=== PATIENT | female | born 1990 | race Two or more races ===

== ENCOUNTER 2021-08-20 12:29 | Emergency (ER) | payer OTHER ==
[~2021-08-20] VITALS: Ht 157.5 cm; Wt 73.9 kg
[2021-08-20] MEDS ORDERED: VITAMIN B-COMP1 EAC1 PO (13:22)
[2021-08-20] MEDS ORDERED: FOLIC ACID1 MG PO (13:22)
== END 2021-08-20 18:53 | disposition home or self-care (01) ==
LOC: ER 12:29
DX: O21.0 Mild hyperemesis gravidarum (principal); Z88.6 Allergy status to analgesic agent; Z3A.14 14 weeks gestation of pregnancy

== ENCOUNTER 2021-08-22 10:28 | Inpatient (IN) | payer OTHER ==
[~2021-08-22] VITALS: Ht 157.5 cm; Wt 75.7 kg
[~2021-08-22 10:28] MED LIST: FOLIC ACID1 MG PO; VITAMIN B-COMP1 EAC1 PO
== END 2021-08-24 11:37 | disposition home or self-care (01) | DRG 833 ==
LOC: OB/GYN 10:28 → SURG-SUITE 10:28
PROVIDERS: ADMIT Obstetrics & Gynecology; ATTEND Obstetrics & Gynecology
PROC: 4A1HXCZ Monitoring of Products of Conception, Cardiac Rate, External Approach (ICD-10-PCS; principal; 2021-08-22)
DX: O21.0 Mild hyperemesis gravidarum (principal); Z3A.15 15 weeks gestation of pregnancy; Z20.822 Contact with and (suspected) exposure to COVID-19

== ENCOUNTER 2021-12-29 11:00 | Inpatient (IN) | payer OTHER ==
[~2021-12-29] VITALS: Ht 157.5 cm; Wt 1.8 kg
[2021-12-29] MEDS ORDERED: PRENATAL TABLE1 EAC1 (11:34)
== END 2022-01-08 16:43 | disposition home or self-care (01) | DRG 786 ==
LOC: OB/GYN 11:00 → LDR 11:00 → OB/GYN 12-30 17:40
PROVIDERS: ADMIT Obstetrics & Gynecology Maternal & Fetal Medicine; ATTEND Obstetrics & Gynecology Maternal & Fetal Medicine
PROC: 4A1HXCZ Monitoring of Products of Conception, Cardiac Rate, External Approach (ICD-10-PCS; 2021-12-29)
PROC: BY4FZZZ Ultrasonography of Third Trimester, Single Fetus (ICD-10-PCS; 2022-01-01)
PROC: BY4FZZZ Ultrasonography of Third Trimester, Single Fetus (ICD-10-PCS; 2022-01-02)
PROC: 10D00Z1 Extraction of Products of Conception, Low, Open Approach (ICD-10-PCS; principal; 2022-01-04 13:00)
DX: O36.5930 Maternal care for other known or suspected poor fetal growth, third trimester, not applicable or unspecified (principal); O60.14X0 Preterm labor third trimester with preterm delivery third trimester, not applicable or unspecified; O26.842 Uterine size-date discrepancy, second trimester; O36.8130 Decreased fetal movements, third trimester, not applicable or unspecified; Z3A.34 34 weeks gestation of pregnancy; Z37.0 Single live birth; Z20.822 Contact with and (suspected) exposure to COVID-19

== ENCOUNTER 2025-02-06 16:38 | Emergency (ER) | payer OTHER ==
[~2025-02-06] VITALS: Ht 157.5 cm; Wt 79.8 kg
[~2025-02-06 16:38] MED LIST changes: +ONDANSETRON ODT8 MG PO; +PRENATAL TABLE1 EAC1
[2025-02-06] MEDS ORDERED: LOVENOX40 MG/0.4 SUBCUTANEO (17:40)
[2025-02-06] MEDS ORDERED: ECOTRIN81 MG PO (17:40)
[2025-02-06] MEDS ORDERED: ONDANSETRON HCL 2 MG/ML VIAL IV ONE (19:00)
[2025-02-06] MEDS ORDERED: 0.9 % SODIUM CHLORIDE 1,000 ML IV ONE (19:00)
[2025-02-06] MEDS ORDERED: FAMOTIDINE/PF 20 MG/2 ML VIAL IV ONE (19:00)
[2025-02-06] MEDS ORDERED: ONDANSETRON HCL 2 MG/ML VIAL ONE (19:03)
[2025-02-06] MEDS ORDERED: FAMOTIDINE/PF 20 MG/2 ML VIAL ONE (19:04)
[2025-02-06 19:24] LABS: BASO % 0.1 % (0.1-1.2); EOS # 0.03 (0.04-0.54); EOS % 0.2 % (0.7-7.0); LYMPH # 1.36 (1.18-3.74); LYMPH % 10.6 % (19.3-53.1); MEAN PLATELET VOLUME 9.10 fl (9.4-12.4); MONO # 0.42 (0.24-0.82); MONO % 3.3 % (4.7-12.5); NEUT # 10.96 (1.56-6.13); NEUT % 85.5 % (34.0-71.1); RED CELL DISTRIBUTION WIDTH 11.8 % (11.6-14.4)
[2025-02-06 19:48] LABS: ALT/SGPT 36.0 U/L (12-78); AST/SGOT 13.0 U/L (15-37); BILIRUBIN TOTAL 0.57 mg/dL (0.3-1.2); BUN CREA RATIO 15.0 (7.0-25.0); CREATININE SERUM 0.52 mg/dL (0.55-1.02); GFR 135.8; GLOBULINA 4.2 G/DL (2.4-3.5); GLUCOSE FASTING 88.0 mg/dL (65-100); OSMOLALITY SERUM 273.0 MOSM/KG (275-295)
[2025-02-06 20:59] LABS: URINE APPEARANCE Clear; URINE BILIRRUBIN Negative (NEGATIVE); URINE BLOOD Small; URINE COLOR Yellow; URINE GLUCOSE Negative (NEGATIVE); URINE LEUKOCYTE Negative; URINE NITRATE Negative; URINE PROTEIN Negative (NEGATIVE); URINE UROBILINOGEN 0.2 E.U./dl
[2025-02-06 21:02] LABS: URINE BACTERIA 220.7 uL (0.0-1933); URINE EPITHELIAL CELLS 16.6 uL (0.0-38.8); URINE RBC 32.1 uL (0.0-20.8); URINE WBC 8.1 uL (0.0-23.2)
[2025-02-06 21:13] LABS: URINE CAST 0.29 uL (0.0-1.40); URINE KETONE 40 (NEGATIVE)
[2025-02-06] MEDS ORDERED: PEPCID AC20 MG PO (22:16)
== END 2025-02-06 22:32 ==
LOC: ER 16:39
PROVIDERS: General Practice
DX: O21.0 Mild hyperemesis gravidarum (principal); O26.891 Other specified pregnancy related conditions, first trimester; Z3A.09 9 weeks gestation of pregnancy

== ENCOUNTER → 2025-03-16 | Emergency (ER) | payer OTHER ==
[~2025-03-16] VITALS: Ht 157.5 cm; Wt 79.4 kg
[~2025-03-16] MED LIST changes: +ECOTRIN81 MG PO; +LOVENOX40 MG/0.4 SUBCUTANEO; +OSEL75CA PO; +OSELTAMIVIR PHOSPHATE 75 MG CAPSULE PO ONE; +PEPCID AC20 MG PO; +PRENATABS RX T1 EACH
[2025-03-16 20:01] VITALS: BP 141/84; O2SAT 100
== END | disposition home or self-care (01) ==
LOC: ER 19:05
DX: O99.512 Diseases of the respiratory system complicating pregnancy, second trimester (principal); J10.1 Influenza due to other identified influenza virus with other respiratory manifestations; Z3A.14 14 weeks gestation of pregnancy; Z91.018 Allergy to other foods; Z91.013 Allergy to seafood